=== PATIENT | female | born 1990 | race Caucasian/White ===

== ENCOUNTER 2022-03-19 13:27 | Emergency (ER) | payer OTHER, SELFPAY ==
[2022-03-19 13:37] VITALS: BP 126/90; PULSE 95; RESP 16; TEMP 36.6; O2SAT 99
--- NOTE | 2022-03-19 14:06 | ED_ITS ---
HPI - Ear Problem General: Chief complaint: Ear Stated complaint: ear pain Time Seen by Provider: 03/19/22 13:36 History of Present Illness: Patient is a 31-year-old female comes to the ED with left ear pain. Symptoms started today. She has been having upper respiratory symptoms of nasal congestion, sinus congestion over the past couple of days but that has improved. This morning she woke up and she was having pain in her left ear. She rates the pain a 6 out of 10. Denies any fevers or ear discharge. Associated symptoms: Reports ear or mastoid pain (Left ear); Denies fever(s), headache(s) or neck pain Review of Systems Const: Denies: fever(s), chills or fatigue Eyes: Denies: change in vision or eye discomfort ENMT: Reports: ear or mastoid pain (Left ear), nasal discharge and nasal congestion; Denies: throat pain or odynophagia Card: Denies: chest pain, palpitations, edema, swelling of feet/ankles, dyspnea on exertion or orthopnea Resp: Denies: dyspnea, productive cough or non-productive cough GI: Denies: abdominal pain, nausea, vomiting, diarrhea, constipation or hematochezia : Denies: flank pain, dysuria or hematuria Musc: Denies: neck pain, back pain or extremity swelling Skin/Breast: Denies: rash or new lesions Neuro: Denies: headache(s), numbness in extremities or weakness in extremities PFS ED PFSH: Medical History No pertinent family history No pertinent past medical history Social History Smoking and tobacco status: never smoked Alcohol intake: never Physical Exam Const: COMMON NORMALS: patient oriented x3 and alert GENERAL APPEARANCE: cooperative and comfortable HENMT: COMMON NORMALS: normocephalic and EAC's normal HEAD & SCALP: normocephalic EXTERNAL AUDITORY CANAL: EAC's normal TYMPANIC MEMBRANE: TM normal on the right and TM abnormal TM laterality: left Details: bulging, erythematous and fluid behind TM MOUTH: Normal oral and palatal mucosa present THROAT: posterior oropharynx normal and uvula midline Neck/C-Spine: COMMON NORMALS: supple GENERAL: Yes normal visual inspection Resp: COMMON NORMALS: normal respiratory effort, No retractions, No use of accessory muscles and clear to auscultation bilaterally AUSCULTATION: clear to auscultation bilaterally Cardio: COMMON NORMALS: regular rate, regular rhythm, S1 normal heart sound present, S2 normal heart sound present, No gallops present (Cardio), No clicks present (Cardio), No murmurs present (Cardio) and Peripheral pulses 2+ throughout RATE: regular rate RHYTHM: regular rhythm HEART SOUNDS: S1 normal heart sound present and S2 normal heart sound present PERIPHERAL PULSES: Peripheral pulses 2+ throughout GI: COMMON NORMALS: Normal to inspection, nondistended, normoactive bowel sounds present, Soft to palpation, non-tender and no masses PALPATION: Yes Soft to palpation : COMMON NORMALS: Yes no CVA tenderness BLADDER/KIDNEY EXAM: Yes no CVA tenderness Back/Pelvis: COMMON NORMALS: no CVA tenderness Extremity: COMMON NORMALS: normal to inspection Neuro: COMMON NORMALS: patient oriented x3 SENSORIUM/ORIENTATION: Yes alert GAIT: Yes Normal gait present Skin: GENERAL SKIN EXAM: dry skin Course Vital Signs: Vital signs: Vital Signs Temperature 97.8 F 03/19/22 13:37 Pulse Rate 95 03/19/22 13:37 Respiratory Rate 16 03/19/22 13:37 Blood Pressure 126/90 03/19/22 13:37 Pulse Oximetry 99 03/19/22 13:37 MDM - Ear Medical Decision Making Patient is a 31-year-old female comes to the ED with left ear pain. Vitals are stable. Patient appears nontoxic in no acute distress or pain. Patient's left TM shows erythema, bulging and fluid behind TM. She was diagnosed with otitis media and was discharged home with a prescription for an antibiotic. Told to follow-up with PCP within the next week for reevaluation. Return to ED precautions given. Patient understood and agreed with plan. Discharge Plan Discharge Patient Disposition: Home Clinical Impression: Otitis media Qualifiers: Otitis media type: unspecified Laterality: left Qualified Code(s): H66.92 - Otitis media, unspecified, left ear Condition: Stable Prescriptions: New amoxicillin 500 mg capsule 500 mg PO BID 10 Days Qty: 20 0RF No Action ondansetron 4 mg tablet,disintegrating 4 mg PO Q6H PRN (Reason: nausea and vomiting) Qty: 12 0RF Rx Instructions: 340b please Discharge Orders: Discharge ED (Routine); Ordered 03/19/22 Ordered By: Claudio Fuller Discharge Diet: Regular Discharge Activity: Increase activity as tolerated Patient Instructions: Otitis Media - Adult Activity Restrictions/Additional Instructions: Follow-up with medical provider as directed. Take medications as prescribed. Return to the ER or your medical provider if condition worsens. Please read and understand discharge instructions. Thank you for choosing [facility] for your healthcare needs today. Please realize this is an emergency room and that we are providing you with a medical screening exam and this may not be complete and all inclusive of all the testing and or work up that you may need to determine your ailment or severity of your illness. It is very important that you follow up as instructed or that you return to the Emergency Department should you have concerns or if your condition changes or worsens in any way. Coding Level of Care Code ED Title 1 Tutor for Sherry Mejia Exam Comprehensive
== END 2022-03-19 14:20 | disposition home or self-care (01) ==
PROVIDERS: Emergency Provider Physician Assistant
DX: H66.92 Otitis media, unspecified, left ear (principal)
CPT/HCPCS: 99283

== ENCOUNTER → 2022-09-06 09:09 | Outpatient (BNVA) | payer OTHER, SELFPAY | PROVIDERS: PCP Family Medicine; Visit Provider Family Medicine | DX: F33.1 Major depressive disorder, recurrent, moderate (principal) | CPT/HCPCS: 80053; 84439; 84443; 85025 ==

== ENCOUNTER 2022-10-08 06:28 | Emergency (ER) | payer OTHER, SELFPAY ==
[2022-10-08 06:49] VITALS: BP 114/69; PULSE 74; RESP 18; TEMP 36.6; O2SAT 100; BMI 20.3
--- NOTE | 2022-10-08 07:10 | ED_ITS ---
HPI - Female Genitourinary General: Chief complaint: Urogenital-Female Stated complaint: frequent urination and burning Time Seen by Provider: 10/08/22 06:38 Source: patient Mode of arrival: ambulatory Limitations: no limitations History of Present Illness: Patient is a 32-year-old female presents to ED today with what she believes might possibly be a UTI. Patient states she gets approximately 2-3 UTIs annually. She is reporting urinary frequency and urgency as well as burning and some hematuria. She has a sensation of incomplete bladder emptying. She denies vaginal discharge, vaginal itching, vaginal odor. She reports LMP approximately a month ago. Denies flank pain. No vomiting or fevers. MD elicited complaint: dysuria and difficulty urinating Pertinent past history: recurrent UTIs Onset (ago): day(s) Severity: mild Vaginal discharge: none Vaginal bleeding: none Urinary symptoms: Difficulty Urinating, Dysuria, Frequency, Hematuria and Urgency Exacerbating factors: urination Relieving factors: none Associated symptoms: Reports no associated symptoms; Deny abdominal pain, nausea or vaginal discharge Treatment prior to arrival: none Sexual activity: Yes Patient : No Date of Last Menstrual Period: 08/18/22 Review of Systems Const: Denies: fever(s), chills, body aches, fatigue or malaise Card: Denies: chest pain Resp: Denies: dyspnea GI: Denies: abdominal pain, nausea, vomiting, diarrhea or change in bowel habits : Reports: dysuria, urinary frequency, urinary urgency, urinary hesitancy and hematuria; Denies: flank pain, genital pruritis, vaginal odor, vaginal bleeding, vaginal d ischarge or pelvic pain Musc: Denies: back pain Skin/Breast: Denies: rash PFSH ED PFSH: Medical History ADHD Anxiety Autism spectrum Depression No pertinent family history No pertinent past medical history Surgical History History of D&C Family History Grandmother Cancer Paternal-breast Father Cancer leukemia Other Psychiatric illness Denies family history of Diabetes CAD (coronary artery disease) Clotting disorder Dementia Hyperlipidemia Chronic kidney disease (CKD) Anesthesia complication Bleeding disorder Lung disease Hypertension Stroke Social History Smoking and tobacco status: never smoked Alcohol intake: current Alcohol intake frequency: holidays/special occasions only Substance/Drug Use: never Lives independently: Yes Marital status: Number of children: 1 Current occupational status: employed Current occupation: [employer] Special xenia needs: No Agree to transfusion: Yes Female Reproductive History: Date of last menstrual period: 08/18/22 Physical Exam Const: COMMON NORMALS: no acute distress, patient oriented x3, no limitations, alert and well nourished GENERAL APPEARANCE: cooperative ORIENTATION/CONSCIOUSNESS: Yes awake, Yes oriented to person, Yes oriented to place and Yes oriented to time Resp: COMMON NORMALS: normal respiratory effort and clear to auscultation bilaterally AUSCULTATION: clear to auscultation bilaterally Cardio: COMMON NORMALS: regular rate and regular rhythm RATE: regular rate RHYTHM: regular rhythm GI: COMMON NORMALS: Normal to inspection, nondistended, normoactive bowel sounds present, Soft to palpation, No hepatosplenomegaly present and no masses INSPECTION: Yes normal to inspection AUSCULTATION: Yes normoactive bowel sounds PALPATION: Yes Soft to palpation, Yes Tenderness to palpation present (GI) (suprapubic ), No Guarding due to palpation present (GI), No Rigid due to palpation and Yes No hepatosplenomegaly present : COMMON NORMALS: Yes no CVA tenderness BLADDER/KIDNEY EXAM: Yes no CVA tenderness Back/Pelvis: COMMON NORMALS: no CVA tenderness LUMBAR SPINE/LOWER BACK: No lumbar spinal tenderness and No paraspinal muscle tenderness Extremity: GENERAL: Yes normal exam except as noted Neuro: MEL COMA SCALE: document GCS findings [place] coma scale eye opening: Spontaneous [place] coma scale verbal response: Orientated [place] coma scale motor response: [place] commands [place] coma scale total score: 15 COMMON NORMALS: patient oriented x3 SENSORIUM/ORIENTATION: Yes alert, Yes oriented to person, Yes oriented to place and Yes oriented to time Skin: COMMON NORMALS: no rashes or lesions noted GENERAL SKIN EXAM: no rashes or lesions noted Course Vital Signs: Vital signs: Vital Signs Temperature 97.9 F 10/08/22 06:49 Pulse Rate 59 L 10/08/22 07:25 Respiratory Rate 18 10/08/22 06:49 Blood Pressure 117/57 10/08/22 07:25 Pulse Oximetry 100 10/08/22 07:25 Oxygen Delivery Me thod Room Air 10/08/22 06:49 MDM - Female Medical Decision Making Urine analysis is suggestive of a UTI with cloudy urine, 2+ blood, 1+ leuks, 55- 80 WBCs and 2+ bacteria. We will culture for confirmation. Patient will be started on Bactrim. She can follow-up with primary care. Return to ED precautions given. test was negative. Lab Data Laboratory Results HCG, Qual Negative (Negative) 10/08/22 07:00 Urine Color Yellow (Yellow) 10/08/22 07:00 Urine Appearance Cloudy (CLEAR) A 10/08/22 07:00 Urine pH 7 (5-7) 10/08/22 07:00 Ur Specific [place] 1.015 (1.005-1.030) 10/08/22 07:00 Urine Protein Neg (Negative) 10/08/22 07:00 Urine Glucose (UA) Norm (Normal) 10/08/22 07:00 Urine Ketones Negative (Negative) 10/08/22 07:00 Urine Blood 2+ (Negative) H 10/08/22 07:00 Urine Nitrate Negative (Negative) 10/08/22 07:00 Urine Bilirubin Neg (Negative) 10/08/22 07:00 Urine Urobilinogen Norm mg/dL (Negative) 10/08/22 07:00 Ur Leukocyte Esterase 1+ (Negative) H 10/08/22 07:00 Urine RBC 5-10 /hpf (0-2) H 10/08/22 07:00 Urine WBC 55-80 /hpf (0-5) H 10/08/22 07:00 Ur Squamous Epith Cells 5-10 /hpf (0-5) H 10/08/22 07:00 Amorphous Sediment 2+ /hpf 10/08/22 07:00 Urine Bacteria 2+ /hpf (NONE) H 10/08/22 07:00 Urine Mucus Trace /hpf 10/08/22 07:00 Discharge Plan Discharge Patient Disposition: Home Clinical Impression: UTI (urinary tract infection) Qualifiers: Urinary tract infection type: acute cystitis Hematuria presence: with hematuria Qualified Code(s): N30.01 - Acute cystitis with hematuria Condition: Stable Prescriptions: New Bactrim DS 800-160 mg tablet 1 tab PO BID 7 Days Qty: 14 0RF No Action fluoxetine 20 mg tablet 20 mg PO .COMPLEX Qty: 30 0RF Rx Instructions: 20 mg orally; 1/2 tablet x 4 days then once daily Discharge Orders: Discharge ED (Routine); Ordered 10/08/22 Ordered By: Meg Saavedra Referrals: Nakul Hermosillo MD [Primary Care Provider] - Patient Instructions: Urinary Tract Infection in Women (DC) Activity Restrictions/Additional Instructions: Your urine analysis did show evidence for UTI. We will culture this for definitive confirmation. test was negative. We will start you on antibiotics in the meantime. You need to fill your antibiotics immediately and start them and finish entire course even if you begin feeling better. You need to return to the emergency department for flank pain, repetitive episodes of vomiting, inability to hold down your antibiotics, fevers, or any other concerns you may have. Otherwise you may follow-up with primary care. I hope you begin to feel better soon. Coding Level of Care Code ED Parking Lot Signaler for Sherry Mejia
[2022-10-08 07:25] VITALS: BP 117/57; PULSE 59; O2SAT 100
[2022-10-08 07:34] LABS: HCG Qualitative Urine. Negative (Negative)
[2022-10-08 07:49] LABS: Urine Appearance Cloudy (CLEAR); Urine Color Yellow (Yellow)
[2022-10-08 07:50] LABS: Add Urine Microscopic? YES; Bilirubin Urine Neg (Negative); Blood Urine 2+ (Negative); Glucose Urine UA Norm (Normal); Ketones Urine Negative (Negative); Leukocyte Esterase Urine 1+ (Negative); Nitrate Urine Negative (Negative); Protein Urine Neg (Negative); Specific Gravity, Urine 1.015 (1.005-1.030); Urobilinogen Urine Norm (Negative); pH Urine 7 (5-7)
[2022-10-08 07:51] LABS: Add Urine Culture? Yes; Amorphous Sediment Urine 2+ /hpf; Bacteria Urine 2+ /hpf; Mucus Urine TRACE /hpf; WBC Urine 55-80 /hpf (0-5)
[2022-10-08 08:02] VITALS: BP 101/57; PULSE 58; O2SAT 94
== END 2022-10-08 08:03 | disposition home or self-care (01) ==
PROVIDERS: Emergency Medicine; Emergency Provider Physician Assistant; PCP Family Medicine
DX: N30.01 Acute cystitis with hematuria (principal); F84.0 Autistic disorder; Z87.440 Personal history of urinary (tract) infections
CPT/HCPCS: 81001; 81025; 87077; 87086; 87186; 99283

== ENCOUNTER 2023-03-09 14:49 | Emergency (ER) | payer OTHER, SELFPAY ==
[2023-03-09 15:03] VITALS: BP 132/85; PULSE 85; RESP 17; TEMP 36.4; O2SAT 100; BMI 19.2
--- NOTE | 2023-03-09 15:44 | ED_ITS ---
HPI - Abdominal Pain General: Chief Complaint: Abdominal Pain Stated Complaint: sharp pain upper abd pain Time Seen by Provider: 03/09/23 15:15 Source: patient Mode of arrival: ambulatory Limitations: no limitations History of Present Illness: This patient presents to the emergency department because she has had some crampy lower abdominal pain that began today while she was at work. She states that felt like that which she is had when she has her period but she just had a normal. That ended on . She denies any blood in her urine, vaginal bleeding, vaginal discharge at this time. She denies any nausea vomiting or diarrhea. She denies any history of sexually transmitted diseases, kidney stones etc. She has not had any fevers or chills cough congestion sore throat etc. No recent travel, recent antibiotic use, known exposure to infectious disease. Migration to: no migration Exacerbating factors: nothing Associated Symptoms: Denies chills, diarrhea, dysuria, fever(s), nausea and vomiting Review of Systems Const: Denies: fever(s) or chills Eyes: Denies: change in vision ENMT: Denies: throat pain, nasal discharge or nasal congestion Resp: Denies: dyspnea, productive cough or non-productive cough GI: Reports: abdominal pain; Denies: nausea, vomiting or diarrhea : Denies: flank pain, difficulty voiding, dysuria, urinary frequency, vaginal bleeding, vaginal discharge or metrorrhagia Musc: Denies: neck pain, extremity pain or extremity swelling Skin/Breast: Denies: rash Neuro: Denies: headache(s), numbness in extremities or weakness in extremities Nicola/Lymph: Denies: easy bruising or easy bleeding PFS ED PFSH: Medical History ADHD Anxiety Autism spectrum Depression No pertinent family history No pertinent past medical history Surgical History History of D&C Family History Grandmother Cancer Paternal-breast Father Cancer leukemia Other Psychiatric illness Denies family history of Diabetes CAD (coronary artery disease) Clotting disorder Dementia Hyperlipidemia Chronic kidney disease (CKD) Anesthesia complication Bleeding disorder Lung disease Hypertension Stroke Social History Smoking and tobacco/nicotine status: never used tobacco/nicotine Alcohol intake: current Alcohol intake frequency: holidays/special occasions only Substance/Drug Use: never Lives independently: Yes Marital status: Number of children: 1 Current occupational status: employed Current occupation: [employer] Special xenia needs: No Agree to transfusion: Yes Physical Exam Narrative: EXAM NARRATIVE: She is alert, no acute distress answers questions in a goal-directed fashion. Const: COMMON NORMALS: no acute distress, average body habitus and patient kelsy ented x3 GENERAL APPEARANCE: cooperative and comfortable ORIENTATION/CONSCIOUSNESS: Yes awake HENMT: COMMON NORMALS: normocephalic, atraumatic, Normal nasal mucous membranes and turbinates present, moist oral mucous membranes and oropharynx normal HEAD & SCALP: normocephalic and atraumatic FACE & SINUS: normal facial exam NOSE: Normal nasal mucous membranes and turbinates present TEETH & GINGIVA: Yes poor dentition Eye: COMMON NORMALS: Equal, round and reactive pupils present, EOMs intact bilaterally and conjunctivae normal CONJUNCTIVA: Yes conjunctivae normal PUPIL: Yes Equal, round and reactive pupils present Neck/C-Spine: COMMON NORMALS: full ROM, no lymphadenopathy and supple Chest: COMMONS NORMALS: normal inspection of the chest Resp: COMMON NORMALS: normal respiratory effort, No retractions, No use of accessory muscles and clear to auscultation bilaterally AUSCULTATION: clear to auscultation bilaterally Cardio: COMMON NORMALS: regular rate, regular rhythm, No murmurs present (Cardio) and Peripheral pulses 2+ throughout RATE: regular rate RHYTHM: regular rhythm PERIPHERAL PULSES: Peripheral pulses 2+ throughout GI: OTHER: Abdomen is tender to palpation particularly in the suprapubic region across the lower abdomen. Some voluntary guarding but no rebound. No masses. : COMMON NORMALS: Yes no CVA tenderness BLADDER/KIDNEY EXAM: Yes no CVA tenderness Back/Pelvis: COMMON NORMALS: no CVA tenderness, thoracic and lumbar spine normal to inspection, no thoracic nor lumbar tenderness, thoraco-lumbar ROM normal and straight leg raise negative bilaterally Extremity: COMMON NORMALS: normal to inspection, full ROM, capillary refill normal, no calf tenderness and no pedal edema Neuro: COMMON NORMALS: patient oriented x3, moves all extremities, no focal motor deficits and no sensory deficits noted CRANIAL NERVES: Yes CN normal except as noted Psych: COMMON NORMALS: mental status grossly normal Skin: COMMON NORMALS: no rashes or lesions noted, no wounds and turgor normal GENERAL SKIN EXAM: no rashes or lesions noted and turgor normal Course Reevaluation(s): Reevaluation #1: Discussed current findings and expected course. She voiced understanding. She was appreciative of care. Stable to be discharged for outpatient therapy without any evidence at this time of an otherwise serious emergency medical condition Time: 18:42 Vital Signs: Vital signs: Vital Signs Temperature 97.6 F 03/09/23 15:03 Pulse Rate 85 03/09/23 15:03 Respiratory Rate 17 03/09/23 15:03 Blood Pressure 132/85 03/09/23 15:03 Pulse Oximetry 100 03/09/23 15:03 Oxygen Delivery Me thod Room Air 03/09/23 15:03 MDM - Abdominal Pain Medical Decision Making This patient presented to the emergency department with symptoms of lower abdominal cramping discomfort with some pain that radiated up into her flank. No fevers or vomiting. No vaginal bleeding no history of STDs etc. Her clinical examination revealed some mild lower abdominal tenderness particular in the suprapubic region to palpation without any no evidence of peritoneal signs or other concerning findings. Work-up was initiated starting with a urinalysis and urine hCG. Urinalysis was suggestive of a lower urinary tract infection with a negative test noted. Given her clinical picture, her history and her current findings strongly suggestive of a lower urinary tract infection. We discussed empiric treatment of such with close follow-up if symptoms do not improve or new symptoms develop. She voiced understanding. She is stable at this time to be discharged. Lab Data I reviewed the patient's lab results. Labs/Radiology: Laboratory Results HCG, Qual Negative (Negative) 03/09/23 18:06 Urine Color Yellow (Yellow) 03/09/23 18:06 Urine Appearance Sl hazy (CLEAR) A 03/09/23 18:06 Urine pH 5 (5-7) 03/09/23 18:06 Ur Specific [place] 1.015 (1.005-1.030) 03/09/23 18:06 Urine Protein Neg (Negative) 03/09/23 18:06 Urine Glucose (UA) Norm (Normal) 03/09/23 18:06 Urine Ketones Negative (Negative) 03/09/23 18:06 Urine Blood Neg (Negative) 03/09/23 18:06 Urine Nitrate Negative (Negative) 03/09/23 18:06 Urine Bilirubin Neg (Negative) 03/09/23 18:06 Urine Urobilinogen Norm mg/dL (Negative) 03/09/23 18:06 Ur Leukocyte Esterase 2+ (Negative) H 03/09/23 18:06 Urine RBC None /hpf (0-2) 03/09/23 18:06 Urine WBC 80-100 /hpf (0-5) H 03/09/23 18:06 Ur Squamous Epith Cells 0-4 /hpf (0-5) H 03/09/23 18:06 Amorphous Sediment Not Reportable 03/09/23 18:06 Urine Bacteria 3+ /hpf (NONE) H 03/09/23 18:06 No radiology studies performed this visit Discharge Plan Discharge Patient Disposition: Home Clinical Impression: UTI (urinary tract infection) Condition: Stable Prescriptions: New Macrobid 100 mg capsule 100 mg PO BID 7 Days Qty: 14 0RF Rx Instructions: must administer with a meal/food [place]imin 0.125 mg tablet 0.125 mg PO Q6H PRN (Reason: bladder spasms) Qty: 14 0RF No Action fluoxetine 40 mg capsule 40 mg PO DAILY Qty: 90 1RF Vyvanse 30 mg capsule 30 mg PO QAM 30 Days Qty: 30 0RF Discharge Orders: Discharge ED (Routine); Ordered 03/09/23 Ordered By: Hayes Coelho Referrals: Nakul Hermosillo MD [Primary Care Provider] - Discharge Diet: Usual diet Discharge Activity: Increase activity as tolerated Patient Instructions: Opioid Safety, Pain Management Activity Restrictions/Additional Instructions: As we discussed during your evaluation in the emergency department this evening you appear to have a lower urinary tract infection. We have provided a prescription of medications to help with your symptoms and treat your infection. If you do not improve as you take this medication or worsen at any time return to this or the nearest emergency department for reevaluation. We also recommend drinking at least 6 to 8 glasses of water daily. Coding Level of Care Code ED Package [place]yer for Sherry Mejia
[2023-03-09 18:26] LABS: HCG Qualitative Urine. Negative (Negative)
[2023-03-09 18:28] LABS: Bilirubin Urine Neg (Negative); Blood Urine Neg (Negative); Glucose Urine UA Norm (Normal); Ketones Urine Negative (Negative); Leukocyte Esterase Urine 2+ (Negative); Nitrate Urine Negative (Negative); Protein Urine Neg (Negative); Specific Gravity, Urine 1.015 (1.005-1.030); Urine Appearance SL Hazy (CLEAR); Urine Color Yellow (Yellow); Urobilinogen Urine Norm (Negative); pH Urine 5 (5-7)
[2023-03-09 18:29] LABS: Add Urine Microscopic? YES
[2023-03-09 18:31] LABS: Bacteria Urine 3+ /hpf; Squamous Epithelial Cell Urine 0-4 /hpf (0-5); WBC Urine 80-100 /hpf (0-5)
[2023-03-09 18:32] LABS: Add Urine Culture? Yes
[2023-03-09] MEDS: hyoscyamine ODT 0.125 mg Tablet PO (19:02)
[2023-03-09] MEDS: nitrofurantoin SR (BID) 100 mg Capsule PO (19:02)
[2023-03-09 19:07] VITALS: BP 127/86; PULSE 80; RESP 16; O2SAT 97
== END 2023-03-09 19:04 | disposition home or self-care (01) ==
PROVIDERS: Emergency Provider Emergency Medicine; PCP Family Medicine
DX: N39.0 Urinary tract infection, site not specified (principal); F84.0 Autistic disorder
CPT/HCPCS: 81001; 81025; 87077; 87086; 87186; 99283